=== PATIENT | female | born 1980 | race Caucasian/White ===

== ENCOUNTER 2023-01-09 05:40 | Day surgery (SDC) | payer BC, OTHER ==
[2023-01-09 06:22] LABS: HCG URINE TEST NEGATIVE (NEGATIVE)
[2023-01-09] MEDS ORDERED: Lactated Ringers 1,000 ML IV SCH (06:30)
[2023-01-09] MEDS ORDERED: Versed 2 MG/2 ML Injection ONE (07:01)
[2023-01-09] MEDS ORDERED: DIPRIVAN 200 MG/20 ML IV ONE ×2 (07:01→07:13)
[2023-01-09] MEDS ORDERED: Xylocaine-Mpf 2% 5 Ml Vial ONE (07:01)
[2023-01-09 08:04] VITALS: BP 113/72; PULSE 67; O2SAT 99
--- NOTE | 2023-01-09 09:59 | OP ---
SURGERY DATE/TIME: 01/09/2023 0703 PREOPERATIVE DIAGNOSIS: Chronic abdominal pain. POSTOPERATIVE DIAGNOSIS: Sigmoid polyp. PROCEDURE: Colonoscopy with cold forceps polypectomy of the sigmoid polyp. SURGEON: Dr. Quintana. ANESTHESIA: MAC. Medications given by anesthesia department. HISTORY: The patient is a 42-year-old white female presenting now for colonoscopic evaluation. The patient reports that she has been having problems with crampy abdominal pain. There has been no bleeding. The patient was felt the need to have endoscopic evaluation. She was described the risks of the procedure including the risk of perforation, phlebitis, untoward reaction to medication, bleeding and missed lesions. The patient verbalized her understanding and desired to have the procedure performed. DESCRIPTION OF PROCEDURE: The patient was given the medications by the anesthesia department. She had continuous pulse oximetry, ECG monitoring and intermittent blood pressure monitoring during the examination. She was placed in the left lateral decubitus position. A digital rectal examination was performed and revealed normal anal sphincter tone and no masses. The flexible Olympus pediatric colonoscope was used to intubate the rectum. A view of the colon was developed sequentially to the cecum. Upon insertion and withdrawal was noted a polyp in the sigmoid colon which was destroyed using multiple passes of the cold forceps biopsy. No other mucosal lesions being encountered, the scope was removed from the patient who tolerated the procedure well and was sent back to OP recovery in good condition.
== END 2023-01-09 08:20 | disposition home or self-care (01) ==
LOC: SDC 05:40
PROVIDERS: ATTEND Family Medicine
DX: D12.5 Benign neoplasm of sigmoid colon (principal); R10.9 Unspecified abdominal pain; Z79.899 Other long term (current) drug therapy
CPT/HCPCS: 36415; 81025; 82947; J2250; J2704

== ENCOUNTER 2025-08-04 09:16 | Day surgery (SDC) | payer BC ==
[2025-08-04] MEDS ORDERED: Lactated Ringers 1,000 ML IV ONE (09:20)
[2025-08-04 09:29] VITALS: TEMP 98.5
[2025-08-04] MEDS: Lactated Ringers 1,000 ML IV SCH (09:31)
[2025-08-04 09:54] LABS: Calcium 9.0 mg/dL (8.4-10.2); Carbon Dioxide 20.0 mmol/L (22-30); Creatinine 1 1.04 mg/dL (0.52-1.04); EST GLOMERULAR FILTRATION RATE 67.6 ML/MIN; Glucose 88.0 mg/dL (74-106); Potassium 3.8 mmol/L (3.5-5.1)
[2025-08-04 10:01] LABS: HCG SERUM TEST NEGATIVE (NEGATIVE)
[2025-08-04] MEDS ORDERED: propofoL IV ONE ×3 (11:51→12:14)
[2025-08-04 13:00] VITALS: RESP 16
[2025-08-04 13:18] VITALS: BP 117/78; PULSE 83; O2SAT 100
--- NOTE | 2025-08-05 12:24 | HP ---
HISTORY OF PRESENT ILLNESS: A 45-year-old, upper esophagus dysphagia with pills and solids, worse over the past year. History of polyp, colonoscopy 3 years ago, and needs followup screening as well. Family history negative for colon cancer. PAST MEDICAL HISTORY: Hypertension, depression, hypothyroidism, history of SVT in the past, history of hyperlipidemia in the past. HOME MEDICATIONS: Aspirin, multivitamin, zinc gluconate capsules, Biotin, fish oil, spironolactone, Wellbutrin, liothyronine, Synthroid, Lipitor, diltiazem. ALLERGIES: No known drug allergies. PAST SURGICAL HISTORY: Had colonoscopy in the past, had cardiac catheterization in the past. SOCIAL HISTORY: No smoking. Occasional alcohol use. FAMILY HISTORY: Heart disease, hypertension, hyperlipidemia. REVIEW OF SYSTEMS: Twelve systems reviewed. No chest pain or palpitations. Other systems negative or noncontributory as above and per preadmission questionnaire. PHYSICAL EXAMINATION: GENERAL: Height 5 feet 9 inches. BMI 20.67. No acute distress. HEENT: Sclerae nonicteric. NECK: No JVD. CARDIOVASCULAR: Regular rate and rhythm. RESPIRATORY: Equal excursion, nonlabored breathing. ABDOMEN: Soft. SKIN: Dry. EXTREMITIES: No cyanosis or edema. NEUROLOGIC: Alert and oriented, moving extremities symmetrically. PSYCHIATRIC: Appropriate mood and affect. RECTAL: Deferred until time of endoscopy exam. IMPRESSION: Dysphagia, upper esophagus. Recommend EGD, possible biopsy, possible dilatation. Also needs followup screening colonoscopy. Risk of bleeding and infection; risk of bowel injury or perforation possibly requiring open procedure; risk of missed or nondiagnosis or incomplete exam possibly requiring barium enema; possibility there may be a functional or neurologic problem and there may not be any narrowing to dilate at time of upper endoscopy. If she does have a narrowed area that requires dilatation, may need to be repeated again down the road. There is the possibility that dilatation may not improve her symptoms; she may need further workup and/or testing, esophagram or other procedures or referrals. General risk of bleeding and infection, risk of perforation possibly requiring transfer for stent placement or possible need for operation, but not limited to. She understands all the above as well as risks of sedation, aches and pains, but not limited to. Will proceed with EGD, possible biopsy, and possible dilatation as an outpatient as well as colonoscopy.
--- NOTE | 2025-08-06 09:00 | OP ---
SURGERY DATE/TIME: 08/04/2025 [id number] PREOPERATIVE DIAGNOSES: 1) Dysphagia upper esophagus. 2) Need for screening colonoscopy. POSTOPERATIVE DIAGNOSES: 1) Gastritis. 2) Proximal esophageal narrowing and spasm. 3) Fair bowel prep. 4) Small early polyps versus hyperplastic lesion of colon. PROCEDURE: 1) Esophagogastroduodenoscopy. 2) Cold biopsy of antrum for H. pylori. 3) Cold biopsy of proximal esophagus to evaluate for eosinophilic esophagitis. 4) Proximal esophageal dilatation (20 balloon). 5) Colonoscopy to cecum. 6) Hot biopsy of vague raised area versus hyperplastic lesion, transverse colon. 7) Hot biopsy, sigmoid colon polyp. 8) Cold biopsy of small rectal polyp. SURGEON: Adelfo Olson MD ANESTHESIA: MAC. ESTIMATED BLOOD LOSS: Minimal. INDICATIONS: As noted above. DESCRIPTION OF PROCEDURE AND FINDINGS: Patient was taken to the endoscopy suite. MAC anesthesia induced. After official time-out and no disagreement in planned procedure, bite block positioned. Videogastroscope passed down the oropharynx. There was some proximal esophageal narrowing and spasm. There was no mass or lesion to biopsy but it was felt it warranted dilating that at the end of the procedure as she was having symptoms there. Scope passed on through the GE junction through the patent pylorus to the junction of third and fourth portions of duodenum. Duodenum grossly unremarkable. Scope was pulled back so it was pulled back into the stomach. Had some mild gastritis. No evidence of any ulcers. Cold biopsy taken to evaluate for H pylori. Good hemostasis noted. On retroflexion, GE junction was fairly snug against the scope. Scope pulled back up to GE junction. Z-line was fairly crisp. There were no signs of any obvious mass or mucosal lesions up the esophagus. Cold biopsy was taken in the proximal half of the esophagus to evaluate for eosinophilic esophagitis. Good hemostasis noted. It was felt would benefit in dilatation of the proximal esophagus narrowed area. Scope was passed back down in the stomach. A 20 balloon catheter carefully inserted, pulled back up to the proximal narrowed area in the proximal esophagus. It was then carefully inflated first stage for 20 or 30 seconds, second stage for 20 or 30 seconds, final stage size 20 balloon dilator left in position for about a minute and a half or so. Balloon catheter was then decompressed and withdrawn. The scope more easily passed through this area down into the stomach and was then carefully withdrawn. There were no signs of any full-thickness issues or injury secondary to dilatation. Patient tolerated this procedure well. Attention was then turned to colonoscopy. Digital rectal exam did not reveal any rectal masses. Videocolonoscope inserted and passed up through slightly tortuous sigmoid, descending, transverse, around to the ascending colon and cecum. Appendiceal orifice and valve well visualized, photo documented. Scope was carefully withdrawn over the next 10 minutes or so. There was a little raised area versus early polyp or hyperplasia mucosa that was biopsied with hot biopsy forceps in the transverse colon. There was an early polyp versus hyperplastic lesion in the sigmoid colon which was removed with hot biopsy polypectomy. There was another small early polyp versus hyperplastic lesion removed with cold biopsy forceps in the distal rectum. Good hemostasis noted. Prep overall was fair. There were no immediate complications. ASA class is 2. Patient tolerated the procedure well. Went to the waiting room to discuss findings with family.
== END 2025-08-04 13:22 | disposition home or self-care (01) ==
LOC: SDC 09:16
PROVIDERS: ATTEND Surgery
DX: Z12.11 Encounter for screening for malignant neoplasm of colon (principal); Z09 Encounter for follow-up examination after completed treatment for conditions other than malignant neoplasm; Z86.0100 Personal history of colon polyps, unspecified; I10 Essential (primary) hypertension; R13.10 Dysphagia, unspecified; K29.70 Gastritis, unspecified, without bleeding; K22.2 Esophageal obstruction; K63.5 Polyp of colon